=== PATIENT | female | born 1960 | race Caucasian/White ===

== ENCOUNTER 2019-03-24 06:00 | Day surgery (SDC) | payer OTHER ==
[~2019-03-24] VITALS: Ht 162.6 cm; Wt 108.2 kg
[~2019-03-24 06:00] MED LIST: SODIUM CHLORIDE 0.9% 1,000 ML ONE
[2019-03-24] MEDS ORDERED: ALBUTEROL SULFATE 2.5 MG/0.5 ML NEB SOLUTION NEB ONE (06:01)
[2019-03-24] MEDS ORDERED: LIDOCAINE 2% 30 ML JELLY TP ONE (06:01)
[2019-03-24] MEDS ORDERED: BENZOCAINE 20% 50 MCG/SPRAY 57 GM TP ONE (06:01)
[2019-03-24] MEDS ORDERED: LIDOCAINE 4% 50 ML SOLUTION TP ONE (06:01)
[2019-03-24] MEDS ORDERED: SODIUM CHLORIDE 0.9% 1,000 ML IV ONE (06:30)
[2019-03-24] MEDS ORDERED: MOME13HF2 IH (07:00)
[2019-03-24] MEDS ORDERED: GLIP10 PO (07:00)
[2019-03-24] MEDS ORDERED: LOSA-88 PO (07:00)
[2019-03-24] MEDS ORDERED: PRAV40TA4 PO (07:00)
[2019-03-24] MEDS ORDERED: PIOG15TA6 PO (07:00)
[2019-03-24] MEDS ORDERED: BENZ-51 PO (07:00)
[2019-03-24] MEDS ORDERED: ASPI-1111 PO (07:00)
[2019-03-24] MEDS ORDERED: MONT10TA21 PO (07:00)
[2019-03-24] MEDS ORDERED: METF-960 PO (07:00)
[2019-03-24] MEDS ORDERED: MIDAZOLAM HCL 2 MG/2 ML VIAL ONE (07:02)
[2019-03-24] MEDS ORDERED: FentaNYL CITRATE-PF 100 MCG/2 ML VIAL ONE (07:02)
[2019-03-24 07:05] LABS: GLUCOMETER DEV NAME(LOC) SDS.; GLUCOSE,POINT OF CARE 122 MG/DL (70-110)
[2019-03-24] MEDS ORDERED: MethylPREDNISolone SOD SUCC 125 MG/2 ML VIAL ONE (07:25)
[2019-03-24] MEDS ORDERED: MethylPREDNISolone SOD SUCC 125 MG/2 ML VIAL IVP ONE (07:30)
[2019-03-24] MEDS ORDERED: OXYGEN THERAPY IH SCH (08:00)
== END 2019-03-24 09:40 | disposition home or self-care (01) ==
LOC: SURGERY 06:00
PROVIDERS: ATTEND Internal Medicine Critical Care Medicine
DX: R05 Cough (principal); J34.89 Other specified disorders of nose and nasal sinuses; J98.8 Other specified respiratory disorders; B37.0 Candidal stomatitis; J38.4 Edema of larynx; Z79.899 Other long term (current) drug therapy
CPT/HCPCS: 31623; 31624; 71045; 82962; 87070; 87101; 87206; 87220; 93005; J2250; J2930; J3010; J7030; 87015; 87205; 88108; 88312